=== PATIENT | female | born 1980 | race Caucasian/White ===

== ENCOUNTER → 2017-06-14 09:44 | Outpatient (CLI) | payer OTHER, SELFPAY ==
[2017-06-19 11:11] LABS: HPV Reflexed? NOT INDICATED
== END ==
PROVIDERS: Family Provider Family Medicine; PCP Family Medicine; Visit Provider Obstetrics & Gynecology
DX: Z12.4 Encounter for screening for malignant neoplasm of cervix (principal)
CPT/HCPCS: 88175; G0145

== ENCOUNTER → 2018-09-19 09:06 | Outpatient (CLI) | payer OTHER, SELFPAY ==
[2018-09-19 13:15] LABS: Chlamydia Trachomatis by PCR Negative (Negative); Neisserai gonorrhoeae by PCR Negative (Negative); Probe Check PASS; Sample Adequacy Control PASS; Specimen Processing Control PASS
== END ==
PROVIDERS: Family Provider Family Medicine; PCP Family Medicine; Visit Provider Obstetrics & Gynecology
DX: Z11.3 Encounter for screening for infections with a predominantly sexual mode of transmission (principal)
CPT/HCPCS: 87491; 87591

== ENCOUNTER → 2019-10-15 10:15 | Outpatient (CLI) | payer OTHER, SELFPAY ==
[2019-10-21 17:35] LABS: HPV Reflexed? NOT INDICATED
== END ==
PROVIDERS: PCP Family Medicine; Visit Provider Obstetrics & Gynecology
DX: Z12.4 Encounter for screening for malignant neoplasm of cervix (principal)
CPT/HCPCS: 88175; G0145

== ENCOUNTER → 2021-12-01 | Outpatient (CLI) | payer OTHER, SELFPAY ==
[2021-12-01 17:38] LABS: Absolute Lymphocyte Count 2.18 X10^3/uL (0.83-4.51); Absolute Neutrophil Count 6.2 X10^3/uL (2.0-7.7); Basophil# 0.04 X10^3/uL; Basophil% 0.4 % (0-1); Eosinophil# 0.31 X10^3/uL; Eosinophils% 3.3 % (0-5); Hematocrit 36.5 % (37-47); Hemoglobin 12.5 g/dL (12.0-15.0); Lymphocyte # 2.18 X10^3/ul (0.83-4.51); Lymphocyte % 23.1 % (19-41); Mean Corp Hgb Conc 34.2 g/dL (32-36); Mean Corpuscular Hgb 31.4 pg (27.0-32.0); Mean Corpuscular Volume 91.7 fL (81-99); Mean Platelet Vol. 9.1 fl (6.2-12.0); Monocyte# 0.64 X10^3/uL; Monocyte% 6.8 % (0-10); NRBC Flagged by Analyzer 0 % (0-5); Neutrophil # 6.19 X10^3/uL (2.7-7.7); Neutrophil % 65.7 % (47-70); Platelet Count 317 K/mm3 (150-450); RBC Distribution Width CV 11.9 % (11.6-14.6); RBC Distribution Width SD 40.4 fl (35.1-43.9); Red Blood Count 3.98 M/mm3 (4.2-5.4); White Blood Count 9.4 K/mm3 (4.4-11.0)
[2021-12-01 17:59] LABS: Hemoglobin A1c 7.5 % (3.8-5.6)
[2021-12-01 18:52] LABS: HIV - WCH Non-Reactive (Nonreactive); Hepatitis B Surface Antigen Non-Reactive (Nonreactive); Rubella IgG Reactive (Nonreactive); Syphilis Antibodies Non-reactive
[2021-12-01 18:53] LABS: Hepatitis C Antibody Non-Reactive (Nonreactive)
[2021-12-03 10:57] LABS: V-Zoster IgG (Immunity) 1405 index (Immune >165)
[2021-12-03 22:06] LABS: Chlamydia By Nucleic Acid AMP Negative (Negative)
[2021-12-04 07:17] LABS: Gonococcus By Nucleic Acid AMP Negative (Negative)
[2021-12-07 15:56] LABS: HPV APTIMA, High Risk Negative (Negative)
== END | disposition home or self-care (01) ==
LOC: WOBLAB 17:06
PROVIDERS: PCP Family Medicine; Visit Provider Obstetrics & Gynecology
DX: Z34.81 Encounter for supervision of other normal pregnancy, first trimester (principal)
CPT/HCPCS: 36415; 83036; 85025; 86703; 86762; 86780; 86787; 86803; 87086; 87340; 87491; 87591; 87624; 88175; G0145

== ENCOUNTER → 2021-12-29 | Outpatient (CLI) | payer OTHER, SELFPAY | END | disposition home or self-care (01) | PROVIDERS: PCP Family Medicine; Visit Provider Obstetrics & Gynecology | DX: Z34.81 Encounter for supervision of other normal pregnancy, first trimester (principal) ==

== ENCOUNTER → 2022-06-03 | Outpatient (CLI) | payer OTHER, SELFPAY ==
[2022-06-03 17:14] LABS: Absolute Lymphocyte Count 2.16 X10^3/uL (0.83-4.51); Absolute Neutrophil Count 6.7 X10^3/uL (2.0-7.7); Basophil# 0.04 X10^3/uL; Basophil% 0.4 % (0-1); Eosinophil# 0.15 X10^3/uL; Eosinophils% 1.5 % (0-5); Hematocrit 34.5 % (37-47); Hemoglobin 11.3 g/dL (12.0-15.0); Lymphocyte # 2.16 X10^3/ul (0.83-4.51); Lymphocyte % 21.9 % (19-41); Mean Corp Hgb Conc 32.8 g/dL (32-36); Mean Corpuscular Hgb 29.7 pg (27.0-32.0); Mean Corpuscular Volume 90.8 fL (81-99); Mean Platelet Vol. 10.2 fl (6.2-12.0); Monocyte# 0.78 X10^3/uL; Monocyte% 7.9 % (0-10); NRBC Flagged by Analyzer 0 % (0-5); Neutrophil # 6.66 X10^3/uL (2.7-7.7); Neutrophil % 67.5 % (47-70); Platelet Count 296 K/mm3 (150-450); RBC Distribution Width CV 12.4 % (11.6-14.6); RBC Distribution Width SD 40.8 fl (35.1-43.9); White Blood Count 9.9 K/mm3 (4.4-11.0)
[2022-06-03 17:24] LABS: Protein, Urine (Random) 25.1 mg/dL (<11.9); Protein:Creat Ratio 124 mg/g CRE (0-200)
[2022-06-03 18:18] LABS: ALB/GLOB Ratio 0.7 RATIO (0.9-2.4); AST(SGOT) 16 U/L (15-37); Alanine Aminotransfer ALT/SGPT 21 U/L (13-56); Albumin, Serum 2.7 g/dL (3.2-5.0); Alkaline Phosphatase 128 U/L (45-117); Anion Gap 8 (5-15); BUN 12 mg/dL (7-18); BUN/Creat Ratio 13.5 RATIO (10-20); Calcium,Total 9.3 mg/dL (8.5-10.1); Chloride 105 mmol/L (98-107); Creatinine, Serum 0.89 mg/dL (0.55-1.02); EST Glomerular Filtration Rate 75 mL/min (>60); Est Glom Filt Rate - Afr Amer 90 mL/min (>60); Glucose 114 mg/dL (74-106); LDH 167 U/L (84-246); Potassium 3.9 mmol/L (3.5-5.1); Protein, Total 6.7 g/dL (6.4-8.2); Sodium Level 139 mmol/L (136-145)
== END | disposition home or self-care (01) ==
LOC: WOBLAB 16:33
PROVIDERS: PCP Family Medicine; Visit Provider Obstetrics & Gynecology
DX: I10 Essential (primary) hypertension (principal)
CPT/HCPCS: 36415; 80053; 82570; 83615; 84156; 85025; 87086; 87088

== ENCOUNTER → 2022-06-10 | Outpatient (CLI) | payer OTHER, SELFPAY ==
[2022-06-10 16:35] LABS: Absolute Lymphocyte Count 2.23 X10^3/uL (0.83-4.51); Absolute Neutrophil Count 6.1 X10^3/uL (2.0-7.7); Basophil# 0.02 X10^3/uL; Basophil% 0.2 % (0-1); Eosinophil# 0.14 X10^3/uL; Eosinophils% 1.5 % (0-5); Hematocrit 34.7 % (37-47); Hemoglobin 11.5 g/dL (12.0-15.0); Lymphocyte # 2.23 X10^3/ul (0.83-4.51); Mean Corp Hgb Conc 33.1 g/dL (32-36); Mean Corpuscular Hgb 29.9 pg (27.0-32.0); Mean Corpuscular Volume 90.1 fL (81-99); Monocyte# 0.75 X10^3/uL; Monocyte% 8.1 % (0-10); NRBC Flagged by Analyzer 0 % (0-5); Neutrophil # 6.08 X10^3/uL (2.7-7.7); Neutrophil % 65.3 % (47-70); Platelet Count 268 K/mm3 (150-450); RBC Distribution Width CV 12.8 % (11.6-14.6); RBC Distribution Width SD 41.7 fl (35.1-43.9); Red Blood Count 3.85 M/mm3 (4.2-5.4); White Blood Count 9.3 K/mm3 (4.4-11.0)
[2022-06-10 17:27] LABS: Syphilis Antibodies Non-reactive
== END | disposition home or self-care (01) ==
LOC: WOBLAB 16:10
PROVIDERS: PCP Family Medicine; Visit Provider Obstetrics & Gynecology
DX: Z34.83 Encounter for supervision of other normal pregnancy, third trimester (principal)
CPT/HCPCS: 36415; 85025; 86780; 87081

== ENCOUNTER 2022-06-14 16:00 | Inpatient (IN) | payer OTHER, SELFPAY ==
[2022-06-14] VITALS (94 sets, daily range): BP systolic 132–193; BP diastolic 76–108; PULSE 68–88; RESP 15–18; TEMP 36.5–36.8; O2SAT 89–100; BMI 33.4
[2022-06-14 15:45] LABS: Hematocrit 33.3 % (37-47); Hemoglobin 11.3 g/dL (12.0-15.0); Mean Corp Hgb Conc 33.9 g/dL (32-36); Mean Corpuscular Volume 88.3 fL (81-99); Mean Platelet Vol. 10.5 fl (6.2-12.0); Platelet Count 266 K/mm3 (150-450); RBC Distribution Width CV 12.6 % (11.6-14.6); RBC Distribution Width SD 40.3 fl (35.1-43.9); Red Blood Count 3.77 M/mm3 (4.2-5.4)
[2022-06-14 15:47] LABS: Color, Urine Yellow (Yellow); Glucose, Dipstick Normal (Normal); Ketone-Dipstick Negative (Negative); Leukocyte Esterase-Dipstick 100 /ul (Negative); Mucous, Urine 0 SEEN /hpf (<or=2+); Nitrite-Dipstick Negative (Negative); Occult Blood-Urine Negative /ul (Negative); Protein-Dipstick Negative (Negative); Red Blood Cells-Urine 0 SEEN /hpf (0-5); Urine Bilirubin Dipstick Negative (Negative); Urine Clarity Sl. Cloudy (Clear); Urine Urobilinogen Normal (Normal)
[2022-06-14 15:47] LABS: Protein, Urine (Random) 7.7 mg/dL (<11.9); Protein:Creat Ratio 399 mg/g CRE (0-200)
[2022-06-14 15:56] LABS: AST(SGOT) 16 U/L (15-37); Alanine Aminotransfer ALT/SGPT 22 U/L (13-56); Creatinine, Serum 0.79 mg/dL (0.55-1.02); EST Glomerular Filtration Rate 86 mL/min (>60); Est Glom Filt Rate - Afr Amer 104 mL/min (>60); Uric Acid 5.8 mg/dL (2.6-6.0)
[2022-06-14 16:20] LABS: Bacteria 2+ /hpf (None Seen); Squamous Epithelial Cells - UA 10-25 SEEN /hpf (5-10); White Blood Cells 5-10 SEEN /hpf (0-5)
[2022-06-14] MEDS: Labetalol (Prefilled) 20 MG/4 ML IV ×2 (16:20→18:54)
[2022-06-14] MEDS: Magnesium Sulfate 4gm/100mL 4 GM/100 ML IV.SOLN. IV (16:29)
[2022-06-14] MEDS: Lactated Ringers 1,000 ML 50 ML IV (16:31)
[2022-06-14] MEDS: Magnesium Sulfate 4gm/100mL 2 GM/50 ML IV.SOLN. IV (16:51)
[2022-06-14] MEDS: Magnesium Sulfate 20 GM/500 ML BAG IV (17:03)
[2022-06-14 17:15] LABS: Bedside Glucose 72 mg/dL (74-106)
--- NOTE | 2022-06-14 17:33 | HP.PCM.OB_ITS ---
History and Physical Date of Admission: 06/14/22 HPI: 41-year-old G3, P2 at 36/3 weeks, RITO 07/09/2022 by LMP consistent with 8-week ultrasound, admitted for induction of labor for superimposed preeclampsia with severe features based on severe range blood pressures and proteinuria. Patient reported elevated blood pressure at home last night and this morning. She was evaluated in office, blood pressure was within normal limits however she reported headache was resolving. Therefore she was sent to labor and delivery for blood pressure monitoring and lab work. Blood pressures were severe range, labetalol 20 mg IV was given. Magnesium was started. Denies vision changes, chest pain or shortness of breath, nausea or vomiting, diarrhea constipation, fevers or chills, right upper quadrant pain. Denies regular contractions. Denies leaking of fluid. Reports movement. complicated by: Superimposed preeclampsia with severe features, patient previously on labetalol 300 mg twice daily. Type 2 diabetes on Levemir 25 units every morning and 65 units in the evening, Humalog 20/20/25 with meals. Advanced maternal age ROOF TRUSS DETAILER history: G1: Full-term 40 week , gestational diabetes G2: 39-week , gestational diabetes G3: Current Medical history: 1. Chronic hypertension 2. Type 2 diabetes Surgical history: 1. Appendectomy Medications: 1.Levemir 25 units every morning and 65 units in the evening, Humalog 20/20/25 with meals 2. Labetalol 300 mg twice daily Allergies: 1. Vicodin Family history: Denies history of blood clots or bleeding disorders, otherwise noncontributory Social history: Denies tobacco, alcohol, drug use Review of system: Negative otherwise stated above Physical exam: Blood pressure 140/80, heart rate 69,Respiratory rate 16, pulse ox 100% on room air General:: No acute distress, comfortable in bed HEENT: Normocephalic/atraumatic, PERRLA Cardiorespiratory: No increased effort Abdomen: Soft, nontender, gravid, no right upper quadrant pain Cervical exam: Per RN 1 cm, 70% effaced Neurologic: Cranial nerves II through XII grossly intact, no focal deficits, patellar reflexes 2/4 bilaterally Musculoskeletal: Strength out of 5 throughout extremities heart rate:115/mod vandana/+accel/no decel [place]: irregular Assessment/plan: 41-year-old G3, P2 at 36/3 weeks, RITO 07/09/2022 by LMP consistent with 8-week ultrasound, admitted for induction of labor for superimposed preeclampsia with severe features based on severe range blood pressures and proteinuria. complicated by: Superimposed preeclampsia with severe features, patient previously on labetalol 300 mg twice daily. Type 2 diabetes on Levemir 25 units every morning and 65 units in the evening, Humalog with meals. Advanced maternal age ?Admit for induction of labor with Cytotec. ? Labs were within normal limits aside from proteinuria ? Start magnesium sulfate. 6 g bolus, 2 g/h. ? GBS negative ? DM2: Diabetes protocol. ? Status post labetalol 20 mg IV x1, continue labetalol 300 mg twice daily. ?Discussed diagnosis and plan of care at length with patient and her partner, bedside RN in room. Discussed delivery, possible special care stay. Discussed not using Celestone at this time as patient is greater than 36 weeks and has poorly controlled diabetes. Continue magnesium for 24 hours postop. Discharge home day 3 if stable. All questions were answered.
[2022-06-14 18:09] LABS: Syphilis Antibodies Non-reactive
[2022-06-14 18:11] LABS: Bedside Glucose 92 mg/dL (74-106)
[2022-06-14] MEDS: miSOPROStol 25 MCG TABLET VAGINAL ×2 (19:02→23:06)
[2022-06-14] MEDS: Mag Hydrox/Al Hydrox/Simeth 30 ML UDC PO (21:01)
[2022-06-14] MEDS: Acetaminophen 500 MG Tablet PO (21:01)
[2022-06-14] MEDS: Labetalol 200 MG Tablet 300 MG PO (21:53)
[2022-06-14 22:25] LABS: Bedside Glucose 109 mg/dL (74-106)
[2022-06-15] VITALS (226 sets, daily range): BP systolic 109–176; BP diastolic 63–100; PULSE 59–96; RESP 15–18; TEMP 36.1–37.4; O2SAT 69–99
[2022-06-15 02:41] LABS: Bedside Glucose 103 mg/dL (74-106)
[2022-06-15] MEDS: miSOPROStol 25 MCG TABLET VAGINAL ×2 (03:06→07:44)
[2022-06-15] MEDS: Magnesium Sulfate 20 GM/500 ML BAG IV ×2 (03:09→14:16)
[2022-06-15 06:36] LABS: Bedside Glucose 129 mg/dL (74-106)
[2022-06-15 06:47] LABS: Magnesium 5.8 mg/dL (1.6-2.6)
[2022-06-15 07:35] LABS: Bedside Glucose 122 mg/dL (74-106)
--- NOTE | 2022-06-15 07:46 | PCM.PN.OB ---
Subjective Subjective Patient in good spirits. Reports irregular contractions, some a little more uncomfortable. Objective Data Objective Data Vital Signs: Vital Signs Temp Pulse Resp BP Pulse Ox O2 Del Method 98.0 F 87 16 146/91 H 98 Room Air 06/15/22 07:00 06/15/22 07:41 06/15/22 07:00 06/15/22 07:06 06/15/22 07:41 06/15/22 07:00 Oxygen Delivery Method Room Air Weight: 91.172 kg Body Mass Index (BMI) 33.4 Intake & Output: Intake and Output for Last 24 Hours 06/13/22 06/14/22 06/15/22 23:59 23:59 23:59 Intake Total 601.5 / 626.5 552.5 / 552.5 Output Total 1600 / 1600 750 / 750 Balance -998.5 / -973.5 -197.5 / -197.5 Lab / Micro Data Attestation: I reviewed the patient's lab results. Result Diagrams: 06/14/22 15:15 06/14/22 14:54 Labs: Laboratory Results - last 24 hr 06/14/22 14:54: U Random Total Protein 7.7, Urine Creatinine 19.30, Protein/Creatinin Ratio 399 H 06/14/22 14:54: Creatinine 0.79, Est GFR (MDRD) Af Amer 104, Est GFR (MDRD) Non-Af 86, Uric Acid 5.8, AST 16, ALT 22 06/14/22 15:15: WBC 9.0, RBC 3.77 L, Hgb 11.3 L, Hct 33.3 L, MCV 88.3, MCH 30.0, MCHC 33.9, RDW Std Deviation 40.3, RDW Coeff of Soraya 12.6, Plt Count 266, MPV 10.5 06/14/22 15:15: Urine Color Yellow, Urine Clarity Sl. Cloudy, Urine pH 7.0, Ur Specific [place] 1.010, Urine Protein Negative, Urine Glucose (UA) Normal, Urine Ketones Negative, Urine Occult Blood Negative, Urine Nitrite Negative, Urine Bilirubin Negative, Urine Urobilinogen Normal, Ur Leukocyte Esterase 100 H, Urine RBC 0 SEEN, Urine WBC 5-10 SEEN, Ur Squamous Epith Cells 10-25 SEEN, Urine Bacteria 2+, Urine Mucus 0 SEEN 06/14/22 15:15: Blood Type O POSITIVE, Antibody Screen NEGATIVE 06/14/22 15:15: Syphilis Total Ab Non-reactive 06/14/22 16:55: POC Glucose 72 L 06/14/22 17:47: POC Glucose 92 06/14/22 21:58: POC Glucose 109 H 06/14/22 23:10: Magnesium 5.0 H 06/15/22 02:09: POC Glucose 103 06/15/22 06:08: POC Glucose 129 H 06/15/22 06:10: Magnesium 5.8 H* 06/15/22 07:14: POC Glucose 122 H Physical Exam Const alert, oriented x3 and no apparent distress Resp normal respiratory effort GI soft to palpation and non-tender Inspection: gravid Extremity normal to inspection and no pedal edema NST FHR Rate Baby A Baseline: 120 Variability:: Moderate Accelerations:: 15 x 15 Decelerations:: None FHR Category:: Category I Uterine Activity:: irregular Assessment & Plan (1) Pre-eclampsia superimposed on chronic hypertension: PLAN: 41-year-old at 36/4 weeks admitted for induction of labor for superimposed preeclampsia with severe features. ?Patient continues on magnesium sulfate. ?She has received 20 mg IV labetalol yesterday afternoon, additional 20 mg IV labetalol around 1900 on 06/14. She is receiving 300 mg labetalol every 12 hours p.o. ?Mag levels within normal limits., Repeat in 6 hours. ?Cervix 1 cm in posterior, patient just received fourth dose of Cytotec. Will likely change to Pitocin at next check. ?Patient now starting on insulin drip. Home insulin had been held on admission. (2) Diabetes mellitus:
[2022-06-15] MEDS: 0.9% Saline Lock 10 ML Syringe IV ×2 (07:59→16:55)
[2022-06-15] MEDS: Lactated Ringers 1,000 ML 15 ML IV (08:15)
[2022-06-15 08:55] LABS: Bedside Glucose 124 mg/dL (74-106)
[2022-06-15] MEDS: Acetaminophen 500 MG Tablet PO (09:11)
[2022-06-15] MEDS: Labetalol 200 MG Tablet 300 MG PO ×2 (09:27→21:58)
[2022-06-15 09:40] LABS: Bedside Glucose 122 mg/dL (74-106)
[2022-06-15 10:41] LABS: Bedside Glucose 162 mg/dL (74-106)
[2022-06-15] MEDS: Lactated Ringers 1,000 ML 50 ML IV (11:39)
[2022-06-15 11:50] LABS: Bedside Glucose 159 mg/dL (74-106)
[2022-06-15] MEDS: Oxytocin 15 Units/NS 250ml 15 UNITS/250 ML IV.SOLN 2 UNITS IV (12:45)
[2022-06-15 13:32] LABS: Magnesium 5.7 mg/dL (1.6-2.6)
[2022-06-15 14:40] LABS: Bedside Glucose 135 mg/dL (74-106)
[2022-06-15 14:40] LABS: Bedside Glucose 125 mg/dL (74-106)
[2022-06-15 14:40] LABS: Bedside Glucose 114 mg/dL (74-106)
[2022-06-15] MEDS: LACTATED RINGERS 500 ML 999 ML IV (15:07)
[2022-06-15 15:46] LABS: Bedside Glucose 100 mg/dL (74-106)
[2022-06-15] MEDS: Carboprost Tromethamine 250 MCG/ML Ampul IM (16:05)
[2022-06-15] MEDS: Lidocaine 1% (20 ml mdv) 20 ML Vial INFILT (16:12)
[2022-06-15] MEDS: Oxytocin 15 Units/NS 250ml 15 UNITS/250 ML IV.SOLN 83 UNITS IV (16:30)
[2022-06-15] MEDS: Ibuprofen 600 MG Tablet PO (16:54)
[2022-06-15 17:40] LABS: Bedside Glucose 134 mg/dL (74-106)
[2022-06-15] MEDS: NIFEdipine 60 MG Tablet PO (17:50)
[2022-06-15] MEDS: Insulin Lispro 100 UNIT/ML INSULN.PEN 10 UNIT SC (18:53)
--- NOTE | 2022-06-15 19:11 | EX.PCM.OBRPT ---
Vaginal Delivery Findings Description of Procedure: Called by nursing in office with patient ready for delivery. Arrived to room with baby in warmer and patient resting comfortably in bed. Precipitous delivery of male . Placenta delivered via cord traction and fundal massage, intact. IV oxytocin initiated per protocol, prophylactic Hemabate given with precipitous second stage of labor and preeclampsia with severe features on magnesium during labor. Second-degree midline perineal laceration noted. 1% lidocaine 10 cc injected. Second-degree midline perineal laceration noted and repaired in typical fashion. EBL 250 cc Apgars 8/9
[2022-06-15 19:25] LABS: Bedside Glucose 149 mg/dL (74-106)
[2022-06-15] MEDS: Insulin Glargine-YFGN 100 UNIT/ML Pen 30 UNIT SC (21:59)
[2022-06-15 22:25] LABS: Bedside Glucose 232 mg/dL (74-106)
[2022-06-16] VITALS (37 sets, daily range): BP systolic 100–141; BP diastolic 60–88; PULSE 65–94; RESP 15–18; TEMP 36.4–37.1; O2SAT 81–98
[2022-06-16] MEDS: Magnesium Sulfate 20 GM/500 ML BAG IV ×2 (00:06→10:02)
--- NOTE | 2022-06-16 04:45 | PCM.PN.OB ---
Subjective Subjective No overnight complaints. Denies headache, vision changes, chest pain, shortness of breath, nausea vomit, right upper quadrant pain. Objective Data Objective Data Vital Signs: Vital Signs Temp Pulse Resp BP Pulse Ox O2 Del Method 98.5 F 90 15 113/65 97 Room Air 06/16/22 04:00 06/16/22 04:00 06/16/22 04:00 06/16/22 04:00 06/16/22 04:00 06/16/22 04:00 Oxygen Delivery Method Room Air Weight: 201 lb Body Mass Index (BMI) 33.4 Intake & Output: Intake and Output for Last 24 Hours 06/14/22 06/15/22 06/16/22 23:59 23:59 23:59 Intake Total 601.5 / 626.5 3414.45 / 3464.45 791.67 / 791.67 Output Total 1600 / 1600 3400 / 3400 600 / 600 Balance -998.5 / -973.5 14.45 / 64.45 191.67 / 191.67 Lab / Micro Data Result Diagrams: 06/14/22 15:15 06/14/22 14:54 Labs: Laboratory Results - last 24 hr 06/15/22 06:08: POC Glucose 129 H 06/15/22 06:10: Magnesium 5.8 H* 06/15/22 07:14: POC Glucose 122 H 06/15/22 08:09: POC Glucose 124 H 06/15/22 09:18: POC Glucose 122 H 06/15/22 10:18: POC Glucose 162 H 06/15/22 11:27: POC Glucose 159 H 06/15/22 12:22: POC Glucose 135 H 06/15/22 12:35: Magnesium 5.7 H* 06/15/22 13:16: POC Glucose 125 H 06/15/22 14:12: POC Glucose 114 H 06/15/22 15:22: POC Glucose 100 06/15/22 17:19: POC Glucose 134 H 06/15/22 18:57: POC Glucose 149 H 06/15/22 22:01: POC Glucose 232 H Physical Exam Const alert, oriented x3, no apparent distress, average body habitus, healthy appearing and well nourished HEENT normocephalic and moist oral mucous membranes Eyes PERRL Neck full ROM Resp normal respiratory effort, no retractions and no use of accessory muscles GI GI Narrative: Soft, nontender, uterus firm and below umbilicus Extremity normal to inspection, full ROM and no clubbing, cyanosis or edema Neuro moves all extremities, no focal motor deficits and deep tendon reflexes 2+ bilaterally Motor Exam: clonus absent Psych mental status grossly normal, affect normal, speech normal and activity/motor behavior normal Assessment & Plan (1) Vaginal delivery: PLAN: day 1 status post vaginal delivery at 36 weeks. Preeclampsia with severe features based on severe range blood pressures, currently on labetalol 3 mg twice daily and Procardia 60 mg daily. We will continue to monitor blood pressures. Currently on magnesium for 24 hours after delivery to stop later today. Patient remains asymptomatic. Diabetes mellitus, intrapartum insulin have we will continue to balance and monitor and adjust appropriately. Discussed patient's need for diabetic diet as she ate [employer] last night for dinner. We will continue to monitor discussed with patient likely earliest home-going would be Monday
[2022-06-16 05:30] LABS: Absolute Lymphocyte Count 1.87 X10^3/uL (0.83-4.51); Basophil# 0.02 X10^3/uL; Basophil% 0.2 % (0-1); Eosinophil# 0.04 X10^3/uL; Eosinophils% 0.3 % (0-5); Hematocrit 31.5 % (37-47); Hemoglobin 10.4 g/dL (12.0-15.0); Lymphocyte # 1.87 X10^3/ul (0.83-4.51); Lymphocyte % 14.7 % (19-41); Mean Corpuscular Hgb 29.7 pg (27.0-32.0); Mean Platelet Vol. 10.4 fl (6.2-12.0); Monocyte# 0.72 X10^3/uL; Monocyte% 5.7 % (0-10); NRBC Flagged by Analyzer 0 % (0-5); Neutrophil # 9.99 X10^3/uL (2.7-7.7); Neutrophil % 78.6 % (47-70); POSITIVE COUNT YES; Platelet Count 262 K/mm3 (150-450); RBC Distribution Width CV 12.8 % (11.6-14.6); RBC Distribution Width SD 41.6 fl (35.1-43.9); White Blood Count 12.7 K/mm3 (4.4-11.0)
[2022-06-16 05:33] LABS: Differential Indicated SCAN CRITERIA MET
[2022-06-16 05:57] LABS: ALB/GLOB Ratio 0.7 RATIO (0.9-2.4); AST(SGOT) 27 U/L (15-37); Alanine Aminotransfer ALT/SGPT 19 U/L (13-56); Albumin, Serum 2.5 g/dL (3.2-5.0); Alkaline Phosphatase 118 U/L (45-117); Anion Gap 8 (5-15); BUN 12 mg/dL (7-18); BUN/Creat Ratio 15.3 RATIO (10-20); Calcium,Total 7.1 mg/dL (8.5-10.1); Chloride 104 mmol/L (98-107); Creatinine, Serum 0.79 mg/dL (0.55-1.02); EST Glomerular Filtration Rate 86 mL/min (>60); Est Glom Filt Rate - Afr Amer 104 mL/min (>60); Estimated Creatinine Clearance 85.18 ml/min; Globulin 3.7 g/dL (2.2-4.2); Glucose 121 mg/dL (74-106); LDH 277 U/L (84-246); Magnesium 6.7 mg/dL (1.6-2.6); Potassium 3.9 mmol/L (3.5-5.1); Protein, Total 6.2 g/dL (6.4-8.2); Sodium Level 135 mmol/L (136-145)
[2022-06-16] MEDS: Ibuprofen 600 MG Tablet PO (06:18)
[2022-06-16 06:31] LABS: Differential Comment SCANNED; Platelet Estimate ADEQUATE (ADEQ)
[2022-06-16] MEDS: Insulin Glargine-YFGN 100 UNIT/ML Pen 12 UNIT SC (08:32)
[2022-06-16] MEDS: Insulin Lispro 100 UNIT/ML INSULN.PEN 10 UNIT SC ×3 (08:34→17:31)
--- NOTE | 2022-06-16 08:42 | NURSING ---
assessment completed with student
[2022-06-16 08:55] LABS: Bedside Glucose 117 mg/dL (74-106)
--- NOTE | 2022-06-16 09:58 | NURSING ---
Student charting reviewed and agree by HOLDEN Miller instructor
[2022-06-16] MEDS: Labetalol 200 MG Tablet 300 MG PO ×2 (10:00→22:05)
[2022-06-16 12:41] LABS: Bedside Glucose 118 mg/dL (74-106)
[2022-06-16 13:25] LABS: Magnesium 6.2 mg/dL (1.6-2.6)
[2022-06-16 17:55] LABS: Bedside Glucose 138 mg/dL (74-106)
[2022-06-16] MEDS: Insulin Glargine-YFGN 100 UNIT/ML Pen 30 UNIT SC (22:11)
[2022-06-16 22:40] LABS: Bedside Glucose 91 mg/dL (74-106)
[2022-06-17] VITALS (10 sets, daily range): BP systolic 98–140; BP diastolic 53–94; PULSE 69–85; RESP 15–18; TEMP 36.7–37.3; O2SAT 96–97
--- NOTE | 2022-06-17 08:20 | PCM.PN.OB ---
Subjective Subjective No overnight complaints. Denies headache, vision change, chest pain, shortness of breath, nausea vomit, quadrant pain Objective Data Objective Data Vital Signs: Vital Signs Temp Pulse Resp BP Pulse Ox O2 Del Method 98.1 F 69 15 133/82 H 96 Room Air 06/17/22 02:46 06/17/22 08:13 06/17/22 02:46 06/17/22 08:13 06/17/22 02:46 06/17/22 02:46 Oxygen Delivery Method Room Air Weight: 201 lb Body Mass Index (BMI) 33.4 Intake & Output: Intake and Output for Last 24 Hours 06/15/22 06/16/22 06/17/22 23:59 23:59 23:59 Intake Total 3414.45 / 3464.45 1865.84 / 1865.84 Output Total 3400 / 3400 1600 / 1600 Balance 14.45 / 64.45 265.84 / 265.84 Lab / Micro Data Result Diagrams: 06/16/22 05:10 06/16/22 05:10 Labs: Laboratory Results - last 24 hr 06/16/22 08:29: POC Glucose 117 H 06/16/22 12:03: POC Glucose 118 H 06/16/22 12:45: Magnesium 6.2 H* 06/16/22 17:28: POC Glucose 138 H 06/16/22 22:14: POC Glucose 91 Physical Exam Const alert, oriented x3, no apparent distress, average body habitus, healthy appearing and well nourished HEENT normocephalic and moist oral mucous membranes Eyes PERRL Neck full ROM Resp normal respiratory effort, no retractions and no use of accessory muscles GI GI Narrative: Soft, nontender, uterus firm and below umbilicus Extremity normal to inspection and full ROM Neuro moves all extremities and no focal motor deficits Psych mental status grossly normal, affect normal, speech normal and activity/motor behavior normal Assessment & Plan (1) Vaginal delivery: PLAN: day 2. Breast-feeding. Sleep with severe features based on severe range blood pressures. Currently on labetalol 300 mg twice daily. Was ordered for Procardia 60 mg XL daily but only received 1 dose and order was inappropriately canceled. At this time nursing to call with 10:00 blood pressure check and pending results will discuss oral blood pressure medications for today and going forward. Patient remains asymptomatic. Will repeat HELLP labs today. Status post magnesium. Pregestational diabetic on half of home insulin, will continue and continue to monitor blood sugars. Discussed with patient we will continue to evaluate until day 3 to 4
[2022-06-17] MEDS: Insulin Glargine-YFGN 100 UNIT/ML Pen 12 UNIT SC (09:20)
[2022-06-17] MEDS: Insulin Lispro 100 UNIT/ML INSULN.PEN 10 UNIT SC ×3 (09:21→21:58)
[2022-06-17 09:30] LABS: Bedside Glucose 88 mg/dL (74-106)
--- NOTE | 2022-06-17 10:16 | NURSING ---
0904: Left a message for Dr.J Gonzalez letting him know that the pt's AM blood sugar is 88 and if I need to hold AM insulin orders.
--- NOTE | 2022-06-17 10:17 | NURSING ---
0916: Orders received from Dr.J Gonzalez to give AM insulin and check 2 hour post perenial blood sugar. Will call back with those results.
--- NOTE | 2022-06-17 10:19 | NURSING ---
1011: Left a message with Dr.J Gonzalez letting him know 1000 blood pressure for pt was 127/74. Orders received to give Am dose of Trandate 300mg.
[2022-06-17] MEDS: Labetalol 200 MG Tablet 300 MG PO ×2 (10:24→22:06)
[2022-06-17 12:01] LABS: Bedside Glucose 108 mg/dL (74-106)
[2022-06-17 13:35] LABS: Bedside Glucose 90 mg/dL (74-106)
[2022-06-17 15:07] LABS: Absolute Lymphocyte Count 1.91 X10^3/uL (0.83-4.51); Absolute Neutrophil Count 5.7 X10^3/uL (2.0-7.7); Basophil# 0.04 X10^3/uL; Basophil% 0.5 % (0-1); Eosinophil# 0.12 X10^3/uL; Eosinophils% 1.4 % (0-5); Hematocrit 30.8 % (37-47); Lymphocyte # 1.91 X10^3/ul (0.83-4.51); Lymphocyte % 22.6 % (19-41); Mean Corp Hgb Conc 32.5 g/dL (32-36); Mean Corpuscular Hgb 29.4 pg (27.0-32.0); Mean Corpuscular Volume 90.6 fL (81-99); Monocyte# 0.69 X10^3/uL; Monocyte% 8.1 % (0-10); NRBC Flagged by Analyzer 0 % (0-5); Neutrophil # 5.65 X10^3/uL (2.7-7.7); Neutrophil % 66.7 % (47-70); Platelet Count 260 K/mm3 (150-450); RBC Distribution Width CV 13.2 % (11.6-14.6); White Blood Count 8.5 K/mm3 (4.4-11.0)
[2022-06-17 15:25] LABS: ALB/GLOB Ratio 0.7 RATIO (0.9-2.4); AST(SGOT) 21 U/L (15-37); Alanine Aminotransfer ALT/SGPT 20 U/L (13-56); Albumin, Serum 2.5 g/dL (3.2-5.0); Alkaline Phosphatase 106 U/L (45-117); Anion Gap 8 (5-15); BUN 15 mg/dL (7-18); BUN/Creat Ratio 15.5 RATIO (10-20); Calcium,Total 9.4 mg/dL (8.5-10.1); Chloride 106 mmol/L (98-107); Creatinine, Serum 0.97 mg/dL (0.55-1.02); EST Glomerular Filtration Rate 68 mL/min (>60); Est Glom Filt Rate - Afr Amer 82 mL/min (>60); Estimated Creatinine Clearance 69.37 ml/min; Globulin 3.8 g/dL (2.2-4.2); Glucose 106 mg/dL (74-106); LDH 257 U/L (84-246); Potassium 4.1 mmol/L (3.5-5.1); Protein, Total 6.3 g/dL (6.4-8.2); Sodium Level 138 mmol/L (136-145)
[2022-06-17 19:20] LABS: Bedside Glucose 69 mg/dL (74-106)
[2022-06-17 22:26] LABS: Bedside Glucose 148 mg/dL (74-106)
[2022-06-18] VITALS (94 sets, daily range): BP systolic 85–177; BP diastolic 51–104; PULSE 69–106; RESP 16–18; TEMP 36–37.6; O2SAT 90–99
[2022-06-18 06:04] LABS: Absolute Lymphocyte Count 2.03 X10^3/uL (0.83-4.51); Absolute Neutrophil Count 5.9 X10^3/uL (2.0-7.7); Basophil# 0.04 X10^3/uL; Basophil% 0.5 % (0-1); Eosinophil# 0.24 X10^3/uL; Eosinophils% 2.7 % (0-5); Hematocrit 32.1 % (37-47); Hemoglobin 10.4 g/dL (12.0-15.0); Lymphocyte # 2.03 X10^3/ul (0.83-4.51); Mean Corp Hgb Conc 32.4 g/dL (32-36); Mean Corpuscular Hgb 29.7 pg (27.0-32.0); Mean Corpuscular Volume 91.7 fL (81-99); Mean Platelet Vol. 9.7 fl (6.2-12.0); Monocyte# 0.54 X10^3/uL; Monocyte% 6.1 % (0-10); NRBC Flagged by Analyzer 0 % (0-5); Neutrophil # 5.88 X10^3/uL (2.7-7.7); Neutrophil % 66.8 % (47-70); Platelet Count 279 K/mm3 (150-450); RBC Distribution Width CV 12.9 % (11.6-14.6); RBC Distribution Width SD 42.6 fl (35.1-43.9); White Blood Count 8.8 K/mm3 (4.4-11.0)
[2022-06-18 06:26] LABS: ALB/GLOB Ratio 0.7 RATIO (0.9-2.4); AST(SGOT) 21 U/L (15-37); Alanine Aminotransfer ALT/SGPT 22 U/L (13-56); Albumin, Serum 2.6 g/dL (3.2-5.0); Alkaline Phosphatase 98 U/L (45-117); Anion Gap 5 (5-15); BUN 15 mg/dL (7-18); BUN/Creat Ratio 18.6 RATIO (10-20); Chloride 107 mmol/L (98-107); EST Glomerular Filtration Rate 84 mL/min (>60); Est Glom Filt Rate - Afr Amer 101 mL/min (>60); Estimated Creatinine Clearance 84.11 ml/min; Globulin 3.8 g/dL (2.2-4.2); Glucose 106 mg/dL (74-106); LDH 233 U/L (84-246); Protein, Total 6.4 g/dL (6.4-8.2); Sodium Level 136 mmol/L (136-145)
[2022-06-18] MEDS: Labetalol 200 MG Tablet 300 MG PO ×2 (08:30→21:36)
[2022-06-18] MEDS: Insulin Glargine-YFGN 100 UNIT/ML Pen 12 UNIT SC (09:38)
[2022-06-18 09:45] LABS: Bedside Glucose 97 mg/dL (74-106)
[2022-06-18] MEDS: NIFEdipine 30 MG Tablet PO ×2 (09:50→13:04)
--- NOTE | 2022-06-18 10:17 | PCM.PN.OB ---
Subjective Subjective No overnight complaints. Patient asymptomatic. Denies headache, vision changes, chest pain, shortness of breath, nausea vomit, right upper quadrant pain. Objective Data Objective Data Vital Signs: Vital Signs Temp Pulse Resp BP Pulse Ox O2 Del Method 97.2 F L 81 16 145/79 H 95 Room Air 06/18/22 06:18 06/18/22 10:05 06/18/22 06:18 06/18/22 10:05 06/18/22 06:18 06/18/22 06:18 Oxygen Delivery Method Room Air Weight: 201 lb Body Mass Index (BMI) 33.4 Intake & Output: Intake and Output for Last 24 Hours 06/16/22 06/17/22 06/18/22 23:59 23:59 23:59 Intake Total 1865.84 / 1865.84 Output Total 1600 / 1600 Balance 265.84 / 265.84 Lab / Micro Data Result Diagrams: 06/18/22 05:50 06/18/22 05:50 Labs: Laboratory Results - last 24 hr 06/17/22 11:37: POC Glucose 108 H 06/17/22 13:14: POC Glucose 90 06/17/22 14:55: WBC 8.5, RBC 3.40 L, Hgb 10.0 L, Hct 30.8 L, MCV 90.6, MCH 29.4, MCHC 32.5, RDW Std Deviation 43.0, RDW Coeff of [place]aya 13.2, Plt Count 260, MPV 10.0, Immature Gran % (Auto) 0.700, Neut % (Auto) 66.7, Lymph % (Auto) 22.6, [place] % (Auto) 8.1, Eos % (Auto) 1.4, Baso % (Auto) 0.5, Absolute Neuts (auto) 5.7, Absolute Lymphs (auto) 1.91, Nucleated RBC % 0 06/17/22 14:55: Sodium 138, Potassium 4.1, Chloride 106, Carbon Dioxide 24.0, Anion Gap 8, BUN 15, Creatinine 0.97, Estim Creat Clear Calc 69.37, Est GFR (MDRD) Af Amer 82, Est GFR (MDRD) Non-Af 68, BUN/Creatinine Ratio 15.5, Glucose 106, Calcium 9.4, Total Bilirubin 0.30, AST 21, ALT 20, Alkaline Phosphatase 106, Lactate Dehydrogenase 257 H, Total Protein 6.3 L, Albumin 2.5 L, Globulin 3.8, Albumin/Globulin Ratio 0.7 L 06/17/22 19:01: POC Glucose 69 L 06/17/22 22:03: POC Glucose 148 H 06/18/22 05:50: WBC 8.8, RBC 3.50 L, Hgb 10.4 L, Hct 32.1 L, MCV 91.7, MCH 29.7, MCHC 32.4, RDW Std Deviation 42.6, RDW Coeff of [place] 12.9, Plt Count 279, MPV 9.7, Immature Gran % (Auto) 0.900, Neut % (Auto) 66.8, Lymph % (Auto) 23.0, [place] % (Auto) 6.1, Eos % (Auto) 2.7, Baso % (Auto) 0.5, Absolute Neuts (auto) 5.9, Absolute Lymphs (auto) 2.03, Nucleated RBC % 0 06/18/22 05:50: Sodium 136, Potassium 4.0, Chloride 107, Carbon Dioxide 24.0, Anion Gap 5, BUN 15, Creatinine 0.80, Estim Creat Clear Calc 84.11, Est GFR (MDRD) Af Amer 101, Est GFR (MDRD) Non-Af 84, BUN/Creatinine Ratio 18.6, Glucose 106, Calcium 9.0, Total Bilirubin 0.20, AST 21, ALT 22, Alkaline Phosphatase 98, Lactate Dehydrogenase 233, Total Protein 6.4, Albumin 2.6 L, Globulin 3.8, Albumin/Globulin Ratio 0.7 L 06/18/22 09:20: POC Glucose 97 Physical Exam Const alert, oriented x3, no apparent distress, average body habitus, healthy appearing and well nourished HEENT normocephalic and moist oral mucous membranes Eyes PERRL Neck full ROM Resp normal respiratory effort, no retractions and no use of accessory muscles GI GI Narrative: Soft, nontender, uterus firm and below umbilicus Extremity normal to inspection, full ROM and no clubbing, cyanosis or edema Neuro moves all extremities, no focal motor deficits and deep tendon reflexes 2+ bilaterally Motor Exam: clonus absent Psych mental status grossly normal, affect normal, speech normal and activity/motor behavior normal Assessment & Plan (1) Vaginal delivery: PLAN: Called by nursing this morning with severe range blood pressures x2 given instructions for labetalol 20 mg IV per protocol and to start magnesium 6 g bolus at 2 g an hour, also given instructions for blood pressures every 15 minutes. Called back by nursing just prior to giving labetalol patient with nonsevere range pressures and remains asymptomatic. Cancel previous orders of IV labetalol and canceled orders of magnesium with now nonsevere range blood pressures. Given nursing orders for her already scheduled labetalol 300 mg twice daily now, given orders for blood pressures every 15 minutes for 1 hour. He arrived to the unit and given orders for Procardia 30 mg XL daily now. Patient seen and examined. day 3. Breast-feeding. Pain well controlled. [place] with severe features based on severe range blood pressures status post pain x24 hours. Patient asymptomatic. With above findings. Discussed starting Procardia 30 mg XL along with continuing labetalol 300 mg twice daily with patient. Discussed with patient and partner if severe range blood pressures will treat and need magnesium again. Labs within normal limits this morning. We will start Lovenox 40 mg daily. Pregestational diabetes, called by nursing with borderline blood sugar instructed to hold Humalog and continue glargine. Pending future blood sugars will continue half of time insulin short and long-acting. Discussed with patient we will continue to monitor today's blood pressure and reevaluate tomorrow. All questions answered by patient and partner
[2022-06-18] MEDS: Enoxaparin 40 MG/0.4 ML Syringe SC (11:19)
[2022-06-18] MEDS: Magnesium Sulfate 4gm/100mL 4 GM/100 ML IV.SOLN. IV (14:20)
[2022-06-18 14:21] LABS: Bedside Glucose 64 mg/dL (74-106)
[2022-06-18] MEDS: Magnesium Sulfate 4gm/100mL 2 GM/50 ML IV.SOLN. IV (14:45)
[2022-06-18] MEDS: Magnesium Sulfate 20 GM/500 ML BAG IV (14:57)
--- NOTE | 2022-06-18 18:01 | NURSING ---
[id number] and mag flow sheet for vitals
--- NOTE | 2022-06-18 18:02 | NURSING ---
1800-see mag flow sheet and qs for vitals
[2022-06-18] MEDS: Insulin Lispro 100 UNIT/ML INSULN.PEN 10 UNIT SC (18:25)
[2022-06-18 19:06] LABS: Bedside Glucose 133 mg/dL (74-106)
[2022-06-18] MEDS: Acetaminophen 500 MG Tablet 1000 MG PO (20:24)
[2022-06-18] MEDS: Ibuprofen 600 MG Tablet PO (20:24)
[2022-06-18] MEDS: Insulin Glargine-YFGN 100 UNIT/ML Pen 30 UNIT SC (21:38)
[2022-06-19] VITALS (28 sets, daily range): BP systolic 84–131; BP diastolic 51–91; PULSE 63–87; RESP 14–20; TEMP 36–36.6; O2SAT 95–99
[2022-06-19 00:01] LABS: Bedside Glucose 138 mg/dL (74-106)
[2022-06-19] MEDS: Magnesium Sulfate 20 GM/500 ML BAG IV ×2 (00:35→10:01)
[2022-06-19] MEDS: Ibuprofen 600 MG Tablet PO ×3 (02:15→17:44)
[2022-06-19 04:17] LABS: Absolute Lymphocyte Count 1.51 X10^3/uL (0.83-4.51); Basophil# 0.03 X10^3/uL; Basophil% 0.4 % (0-1); Eosinophils% 4.7 % (0-5); Hematocrit 34.7 % (37-47); Hemoglobin 11.2 g/dL (12.0-15.0); Lymphocyte # 1.51 X10^3/ul (0.83-4.51); Lymphocyte % 17.7 % (19-41); Mean Corp Hgb Conc 32.3 g/dL (32-36); Mean Corpuscular Hgb 29.5 pg (27.0-32.0); Mean Corpuscular Volume 91.3 fL (81-99); Mean Platelet Vol. 9.2 fl (6.2-12.0); Monocyte% 5.9 % (0-10); NRBC Flagged by Analyzer 0 % (0-5); Neutrophil # 6.03 X10^3/uL (2.7-7.7); Neutrophil % 70.6 % (47-70); Platelet Count 295 K/mm3 (150-450); RBC Distribution Width CV 12.9 % (11.6-14.6); RBC Distribution Width SD 42.7 fl (35.1-43.9); White Blood Count 8.5 K/mm3 (4.4-11.0)
[2022-06-19 04:40] LABS: ALB/GLOB Ratio 0.7 RATIO (0.9-2.4); AST(SGOT) 29 U/L (15-37); Alanine Aminotransfer ALT/SGPT 36 U/L (13-56); Albumin, Serum 2.9 g/dL (3.2-5.0); Alkaline Phosphatase 110 U/L (45-117); Anion Gap 6 (5-15); BUN 14 mg/dL (7-18); BUN/Creat Ratio 18.8 RATIO (10-20); Calcium,Total 8.3 mg/dL (8.5-10.1); Chloride 104 mmol/L (98-107); Creatinine, Serum 0.75 mg/dL (0.55-1.02); EST Glomerular Filtration Rate 91 mL/min (>60); Est Glom Filt Rate - Afr Amer 110 mL/min (>60); Estimated Creatinine Clearance 89.72 ml/min; Glucose 70 mg/dL (74-106); LDH 284 U/L (84-246); Potassium 3.6 mmol/L (3.5-5.1); Protein, Total 6.9 g/dL (6.4-8.2); Sodium Level 136 mmol/L (136-145)
[2022-06-19 04:53] LABS: Magnesium 6.4 mg/dL (1.6-2.6)
[2022-06-19] MEDS: Acetaminophen 500 MG Tablet 1000 MG PO (05:10)
[2022-06-19 05:55] LABS: Bedside Glucose 87 mg/dL (74-106)
[2022-06-19] MEDS: Insulin Glargine-YFGN 100 UNIT/ML Pen 12 UNIT SC (09:04)
[2022-06-19 10:15] LABS: Bedside Glucose 85 mg/dL (74-106)
[2022-06-19 10:38] LABS: Magnesium 6.2 mg/dL (1.6-2.6)
[2022-06-19] MEDS: Enoxaparin 40 MG/0.4 ML Syringe SC (10:59)
[2022-06-19] MEDS: Labetalol 200 MG Tablet 300 MG PO (11:00)
--- NOTE | 2022-06-19 12:47 | PN.OBGYN_ITS ---
Subjective Subjective No overnight complaints. Denies headache, vision change, chest pain, shortness of breath, nausea vomit, right upper quadrant pain. Objective Data Objective Data Vital Signs: Vital Signs Temp Pulse Resp BP Pulse Ox O2 Del Method 97.3 F L 72 16 116/79 95 Room Air 06/19/22 08:05 06/19/22 12:06 06/19/22 12:05 06/19/22 12:06 06/19/22 12:05 06/19/22 12:05 Oxygen Delivery Method Room Air Weight: 201 lb Body Mass Index (BMI) 33.4 Intake & Output: Intake and Output for Last 24 Hours 06/17/22 06/18/22 06/19/22 23:59 23:59 23:59 Intake Total 690.83 / 690.83 1964.99 / 1964.99 Output Total 1000 / 1000 2300 / 2300 Balance -309.17 / -309.17 -335.01 / -335.01 Lab / Micro Data Result Diagrams: 06/19/22 04:05 06/19/22 04:05 Labs: Laboratory Results - last 24 hr 06/18/22 13:59: POC Glucose 64 L 06/18/22 18:20: POC Glucose 133 H 06/18/22 21:10: Magnesium 5.0 H 06/18/22 21:22: POC Glucose 138 H 06/19/22 04:05: WBC 8.5, RBC 3.80 L, Hgb 11.2 L, Hct 34.7 L, MCV 91.3, MCH 29.5, MCHC 32.3, RDW Std Deviation 42.7, RDW Coeff of [place] 12.9, Plt Count 295, MPV 9.2, Immature Gran % (Auto) 0.700, Neut % (Auto) 70.6 H, Lymph % (Auto) 17.7 L, [place] % (Auto) 5.9, Eos % (Auto) 4.7, Baso % (Auto) 0.4, Absolute Neuts (auto) 6.0, Absolute Lymphs (auto) 1.51, Nucleated RBC % 0 06/19/22 04:05: Sodium 136, Potassium 3.6, Chloride 104, Carbon Dioxide 26.0, Anion Gap 6, BUN 14, Creatinine 0.75, Estim Creat Clear Calc 89.72, Est GFR (MDRD) Af Amer 110, Est GFR (MDRD) Non-Af 91, BUN/Creatinine Ratio 18.8, Glucose 70 L, Calcium 8.3 L, Total Bilirubin 0.30, AST 29, ALT 36, Alkaline Phosphatase 110, Lactate Dehydrogenase 284 H, Total Protein 6.9, Albumin 2.9 L, Globulin 4.0, Albumin/Globulin Ratio 0.7 L 06/19/22 04:05: Magnesium 6.4 H* 06/19/22 05:37: POC Glucose 87 06/19/22 09:02: POC Glucose 85 06/19/22 10:10: Magnesium 6.2 H* Physical Exam Const alert, oriented x3, no apparent distress, average body habitus, healthy appearing and well nourished HEENT normocephalic and moist oral mucous membranes Eyes PERRL Neck full ROM Resp normal respiratory effort, no retractions and no use of accessory muscles Extremity normal to inspection, full ROM and no clubbing, cyanosis or edema Neuro moves all extremities, no focal motor deficits and deep tendon reflexes 2+ bilaterally Motor Exam: clonus absent Psych mental status grossly normal, affect normal, speech normal and activity/motor be havior normal Assessment & Plan (1) Vaginal delivery: PLAN: day 4. Breast-feeding. Kyung with severe features based on severe range blood pressures status post magnesium x24 hours. Called by nursing on 06/18 with persistent severe range blood pressures given orders for labetalol 20 mg IV and to start magnesium 6 g bolus at 2 g an hour with every 6 hours mag levels. Call back by nursing with nonsevere range blood pressure just prior to giving 20 mg of IV labetalol, told to hold labetalol 20 mg IV but start magnesium as previously ordered. Ordered at that time to give Procardia 30 mg XL daily and to continue labetalol 3 mg twice daily. Called back by nursing with severe range blood pressure but not persistent in order to give an extra 30 mg for a total of 60 mg Procardia daily. Seen and examined today. Patient remains asymptomatic. Currently on labetalol 300 mg twice daily and Procardia 60 mg daily, this morning's dose of 300 mg of labetalol was held today. Educated patient on plan for today including magnesium for 24 hours. Discussed prolonged hospital stay and need to continue to monitor. Discussed will consult hospitalist for evaluation. Patient and partner state understanding. Discussed case with hospitalist, hospitalist considering adjusting labetalol and Procardia dosing. Also discussed pregestational diabetes with hospitalist and will evaluate adjusting both short and long-acting insulin. We will continue evaluate today and reevaluate tomorrow
[2022-06-19] MEDS: NIFEdipine 60 MG Tablet PO (13:23)
[2022-06-19 13:46] LABS: Bedside Glucose 96 mg/dL (74-106)
--- NOTE | 2022-06-19 14:33 | PN.HOSP_ITS ---
Reason for Visit Reason for Visit: Diagnoses Type 2 diabetes mellitus without complications (06/14/22) Pre-existing hypertension with pre-eclampsia, unspecified trimester (06/14/22) Encounter for full-term uncomplicated delivery (06/14/22) Subjective Subjective Patient was seen and examined today at the request of BUSINESS SERVICES MANAGER, she delivered recently and had preeclampsia superimposed on chronic hypertension. Patient is currently getting mag sulfate, she is also on labetalol and Procardia. Patient was taking labetalol 300 mg twice a day as an outpatient. Patient was also on outpatient insulin. Patient does have history of diabetes and hypertension in her family members. Patient's blood pressure has been somewhat on the low side this afternoon, she is due to have 1 more dose of magnesium. Objective Data Objective Data Vital Signs: Vital Signs Temp Pulse Resp BP Pulse Ox O2 Del Method 97.3 F L 73 16 122/80 H 98 Room Air 06/19/22 08:05 06/19/22 14:26 06/19/22 13:10 06/19/22 14:25 06/19/22 14:26 06/19/22 13:10 Oxygen Delivery Method Room Air Weight: 91.172 kg Body Mass Index (BMI) 33.4 Intake & Output: Intake and Output for Last 24 Hours 06/17/22 06/18/22 06/19/22 23:59 23:59 23:59 Intake Total 690.83 / 690.83 2073.32 / 2073.32 Output Total 1000 / 1000 2300 / 2300 Balance -309.17 / -309.17 -226.68 / -226.68 Lab / Micro Data Result Diagrams: 06/19/22 04:05 06/19/22 04:05 Labs: Laboratory Results - last 24 hr 06/18/22 18:20: POC Glucose 133 H 06/18/22 21:10: Magnesium 5.0 H 06/18/22 21:22: POC Glucose 138 H 06/19/22 04:05: WBC 8.5, RBC 3.80 L, Hgb 11.2 L, Hct 34.7 L, MCV 91.3, MCH 29.5, MCHC 32.3, RDW Std Deviation 42.7, RDW Coeff of Soraya 12.9, Plt Count 295, MPV 9.2, Immature Gran % (Auto) 0.700, Neut % (Auto) 70.6 H, Lymph % (Auto) 17.7 L, [place] % (Auto) 5.9, Eos % (Auto) 4.7, Baso % (Auto) 0.4, Absolute Neuts (auto) 6.0, Absolute Lymphs (auto) 1.51, Nucleated RBC % 0 06/19/22 04:05: Sodium 136, Potassium 3.6, Chloride 104, Carbon Dioxide 26.0, Anion Gap 6, BUN 14, Creatinine 0.75, Estim Creat Clear Calc 89.72, Est GFR (MDRD) Af Amer 110, Est GFR (MDRD) Non-Af 91, BUN/Creatinine Ratio 18.8, Glucose 70 L, Calcium 8.3 L, Total Bilirubin 0.30, AST 29, ALT 36, Alkaline Phosphatase 110, Lactate Dehydrogenase 284 H, Total Protein 6.9, Albumin 2.9 L, Globulin 4.0, Albumin/Globulin Ratio 0.7 L 06/19/22 04:05: Magnesium 6.4 H* 06/19/22 05:37: POC Glucose 87 06/19/22 09:02: POC Glucose 85 06/19/22 10:10: Magnesium 6.2 H* 06/19/22 13:23: POC Glucose 96 Physical Exam Const alert, oriented x3, no apparent distress and healthy appearing General Appearance: cooperative, well kempt and well developed Orientation / Consciousness: awake, oriented to person, oriented to place and oriented to time HEENT normocephalic, head/scalp atraumatic and moist oral mucous membranes Eyes PERRL, EOMs intact bilaterally and conjunctivae normal Neck supple, no JVD, thyroid normal and no carotid bruits General: trachea midline Resp normal respiratory effort, no retractions, no use of accessory muscles and clear to auscultation bilaterally Auscultation: Negative for rales, rhonchi or wheezes Cardio regular rate, regular rhythm, S1 normal heart sound, S2 normal heart sound, no murmurs, no rub and no gallops GI normal to inspection, nondistended, normoactive bowel sounds, soft to palpation, non-tender and non-distended Extremity no clubbing, cyanosis or edema Skin no rashes or lesions noted General Skin Exam: no breakdown Neuro oriented x3, CN's II-XII intact bilaterally, no focal motor deficits and no sensory deficits noted Sensorium / Orientation: awake and alert Speech: speech normal Psych affect normal Assessment & Plan Assessment/Plan (1) Pre-eclampsia superimposed on chronic hypertension: PLAN: Plan 1. Preeclampsia superimposed on essential hypertension-I asked nursing to let me know how her blood pressure is trending after her magnesium is finished, I will check on the patient tomorrow, it may be necessary to go back up with the Trandate or add hydrochlorothiazide to her medications. Patient has no edema today, this could be a problem however with Procardia administration. Patient's renal functions are normal. #2 type 2 diabetes-I have elected to keep the patient on her current basal insulin dosage, I decreased her prandial dosage of lispro, blood sugars will be monitored. I entered an adult insulin order set him for the patient using the medium high dosage. Total clinical time spent by myself addressing the patient's medical problems, reviewing all the data, and collaborating with patient's care team: 35 minutes Charges/Coding Visit Charges Inpatient E&M: 58768 Subs Hosp L2
[2022-06-19] MEDS: 0.9% Saline Lock 10 ML Syringe IV (14:36)
[2022-06-19] MEDS: Insulin Lispro 100 UNIT/ML INSULN.PEN 7 UNIT SC (18:21)
[2022-06-19 18:45] LABS: Bedside Glucose 98 mg/dL (74-106)
[2022-06-19] MEDS: Mupirocin Ointment 22gm Tube 1 APPLIC TOPICAL (20:36)
[2022-06-19] MEDS: Insulin Glargine-YFGN 100 UNIT/ML Pen 30 UNIT SC (21:30)
[2022-06-19] MEDS: Labetalol 200 MG Tablet PO (21:31)
[2022-06-20 00:41] VITALS: BP 114/75; PULSE 85; RESP 16; TEMP 36.2
[2022-06-20 00:46] LABS: Bedside Glucose 121 mg/dL (74-106)
[2022-06-20 03:55] VITALS: BP 109/60; PULSE 82; RESP 18; TEMP 36.6
[2022-06-20] MEDS: Mupirocin Ointment 22gm Tube 1 APPLIC TOPICAL (05:50)
[2022-06-20] MEDS: Acetaminophen 500 MG Tablet 1000 MG PO (05:51)
[2022-06-20 06:10] LABS: Absolute Lymphocyte Count 1.76 X10^3/uL (0.83-4.51); Basophil# 0.03 X10^3/uL; Basophil% 0.4 % (0-1); Eosinophil# 0.44 X10^3/uL; Eosinophils% 5.7 % (0-5); Hematocrit 35.2 % (37-47); Hemoglobin 11.6 g/dL (12.0-15.0); Lymphocyte # 1.76 X10^3/ul (0.83-4.51); Lymphocyte % 22.7 % (19-41); Mean Platelet Vol. 9.1 fl (6.2-12.0); Monocyte# 0.52 X10^3/uL; Monocyte% 6.7 % (0-10); NRBC Flagged by Analyzer 0 % (0-5); Neutrophil # 4.97 X10^3/uL (2.7-7.7); Neutrophil % 63.9 % (47-70); Platelet Count 348 K/mm3 (150-450); RBC Distribution Width CV 12.8 % (11.6-14.6); RBC Distribution Width SD 42.1 fl (35.1-43.9); Red Blood Count 3.87 M/mm3 (4.2-5.4); White Blood Count 7.8 K/mm3 (4.4-11.0)
[2022-06-20 06:35] LABS: ALB/GLOB Ratio 0.7 RATIO (0.9-2.4); AST(SGOT) 20 U/L (15-37); Alanine Aminotransfer ALT/SGPT 32 U/L (13-56); Albumin, Serum 2.8 g/dL (3.2-5.0); Alkaline Phosphatase 101 U/L (45-117); Anion Gap 5 (5-15); BUN 17 mg/dL (7-18); BUN/Creat Ratio 22.8 RATIO (10-20); Calcium,Total 8.7 mg/dL (8.5-10.1); Chloride 108 mmol/L (98-107); Creatinine, Serum 0.74 mg/dL (0.55-1.02); EST Glomerular Filtration Rate 92 mL/min (>60); Est Glom Filt Rate - Afr Amer 111 mL/min (>60); Estimated Creatinine Clearance 90.93 ml/min; Globulin 4.1 g/dL (2.2-4.2); Glucose 115 mg/dL (74-106); LDH 273 U/L (84-246); Potassium 4.3 mmol/L (3.5-5.1); Protein, Total 6.9 g/dL (6.4-8.2); Sodium Level 137 mmol/L (136-145)
[2022-06-20 07:53] VITALS: BP 138/92; PULSE 82
[2022-06-20 08:00] VITALS: BP 138/92; PULSE 82; RESP 16; TEMP 36.9
[2022-06-20] MEDS: Insulin Glargine-YFGN 100 UNIT/ML Pen 12 UNIT SC (08:00)
[2022-06-20 08:26] LABS: Bedside Glucose 108 mg/dL (74-106)
[2022-06-20] MEDS: Insulin Lispro 100 UNIT/ML INSULN.PEN 7 UNIT SC ×2 (08:54→12:33)
--- NOTE | 2022-06-20 09:19 | DS.PCM_ITS ---
Discharge Summary Date of Admission: 06/14/22 Date of Discharge: 06/20/22 Summary: Patient arrived on 06/14/2022 for induction of labor with preeclampsia with severe features based on severe range blood pressures. Magnesium started, blood pressures controlled using antihypertensive medications. Subsequently delivered vaginally on 06/15/2022. Continue magnesium for 24 hours. Oral antihypertensives continued during . Subsequently on day 3 had severe range blood pressures requiring magnesium and antihypertensive medications. Continue magnesium for 24 hours. Hospitalist consulted. Hospitalist adjusted both blood pressure medications and insulin regiment. Kamini ient discharged home on 06/20/2022 on labetalol 200 mg twice daily Procardia 30 mg XL daily along with Humalog 7 units 3 times daily with meals and Levemir 12 units in the morning and 30 units in the evening. Meaningful Use Info Meaningful Use Diagnoses (Choose all that apply): None applicable Discharge Plan Admission Admit Date/Time: 06/14/22 16:00 Primary Reason for Your Visit: Preeclampsia with severe features Attending Provider: Sudarshan Gonzalez Primary Care Provider: Deandre Ramirez Consulting Providers: Mumtaz Eaton Instructions Additional Instructions / Restrictions: Regular diet. Okay to shower. Weightbearing as tolerated. No intercourse for 4 to 6 weeks. Call if fevers, chills, chest pain, shortness of breath, headache, visual changes, right upper quadrant pain. Follow-up tomorrow for blood pressure check Discharge Orders/Prescriptions Prescriptions: New nifedipine 60 mg Tablet Extended Release 24hr 30 mg PO BID 30 Days Qty: 30 2RF labetalol 200 mg Tablet 200 mg PO BID 30 Days Qty: 60 2RF enoxaparin 40 mg/0.4 mL Syringe 40 mg subcut DAILY 30 Days Qty: 12 1RF Rx Instructions: Include supplies Continued Prenatabs FA 1 TABLET tablet 1 tab PO DAILY Discontinued insulin lispro [Humalog Pen] 100 unit/mL Insulin Pen 20 unit SUBCUT Rx Instructions: 20 units at mealtime. aspirin 81 mg Tablet 81 mg PO DAILY Levemir FlexPen 100 unit/mL (3 mL) Insulin Pen 100 unit SUBCUT DAILY Rx Instructions: 25 units in AM 65 at HS Vitamin B-6 labetalol 300 mg Tablet 300 mg PO BID Referrals / Follow Up: Deandre Ramirez MD [Primary Care Provider] - Disposition Disposition (needs filled in before D/C Order can be placed): Home, Self Care
--- NOTE | 2022-06-20 09:29 | PN.OBGYN_ITS ---
Subjective Subjective No overnight complaints. Denies headache, vision change, chest pain, shortness of breath, nausea vomit, right upper quadrant pain Objective Data Objective Data Vital Signs: Vital Signs Temp Pulse Resp BP Pulse Ox O2 Del Method 98.5 F 82 16 138/92 H 98 Room Air 06/20/22 08:00 06/20/22 08:00 06/20/22 08:00 06/20/22 08:00 06/19/22 14:26 06/20/22 03:55 Oxygen Delivery Method Room Air Weight: 201 lb Body Mass Index (BMI) 33.4 Intake & Output: Intake and Output for Last 24 Hours 06/18/22 06/19/22 06/20/22 23:59 23:59 23:59 Intake Total 690.83 / 690.83 2131.65 / 2131.65 Output Total 1000 / 1000 2300 / 2300 Balance -309.17 / -309.17 -168.35 / -168.35 Lab / Micro Data Result Diagrams: 06/20/22 05:50 06/20/22 05:50 Labs: Laboratory Results - last 24 hr 06/19/22 09:02: POC Glucose 85 06/19/22 10:10: Magnesium 6.2 H* 06/19/22 13:23: POC Glucose 96 06/19/22 18:19: POC Glucose 98 06/19/22 21:19: POC Glucose 121 H 06/20/22 05:50: WBC 7.8, RBC 3.87 L, Hgb 11.6 L, Hct 35.2 L, MCV 91.0, MCH 30.0, MCHC 33.0, RDW Std Deviation 42.1, RDW Coeff of Soraya 12.8, Plt Count 348, MPV 9.1, Immature Gran % (Auto) 0.600, Neut % (Auto) 63.9, Lymph % (Auto) 22.7, [place] % (Auto) 6.7, Eos % (Auto) 5.7 H, Baso % (Auto) 0.4, Absolute Neuts (auto) 5.0, Absolute Lymphs (auto) 1.76, Nucleated RBC % 0 06/20/22 05:50: Sodium 137, Potassium 4.3, Chloride 108 H, Carbon Dioxide 24.0, Anion Gap 5, BUN 17, Creatinine 0.74, Estim Creat Clear Calc 90.93, Est GFR (MDRD) Af Amer 111, Est GFR (MDRD) Non-Af 92, BUN/Creatinine Ratio 22.8 H, Glucose 115 H, Calcium 8.7, Total Bilirubin 0.30, AST 20, ALT 32, Alkaline Phosphatase 101, Lactate Dehydrogenase 273 H, Total Protein 6.9, Albumin 2.8 L, Globulin 4.1, Albumin/Globulin Ratio 0.7 L 06/20/22 07:51: POC Glucose 108 H Physical Exam Const alert, oriented x3, no apparent distress, average body habitus, healthy appearing and well nourished HEENT normocephalic and moist oral mucous membranes Eyes PERRL Neck full ROM Resp normal respiratory effort, no retractions and no use of accessory muscles Neuro moves all extremities and no focal motor deficits Psych mental status grossly normal, affect normal, speech normal and activity/motor behavior normal Assessment & Plan (1) Vaginal delivery: PLAN: day 5. Breast-feeding. Pain well controlled. Kyung with se felix features based on severe range blood pressures status post magnesium x2. Hospitalist consulted yesterday after discussion this morning [id number] with hospitalist feel comfortable discharging home. Hospitalist adjusted labetalol to 200 mg twice daily and Procardia 30 mg XL twice daily. Hospitalist also adjusted insulin regimen. Patient has blood pressure cuff at home and will follow-up with law office assistant nurse regularly for blood pressure checks with parameters. To follow-up tomorrow for blood pressure check. Educated patient on signs and symptoms of preeclampsia. Patient state understanding all questions answered
[2022-06-20] MEDS: NIFEdipine 60 MG Tablet PO (09:58)
[2022-06-20] MEDS: Labetalol 200 MG Tablet PO (09:58)
[2022-06-20] MEDS: Enoxaparin 40 MG/0.4 ML Syringe SC (09:58)
--- NOTE | 2022-06-20 10:16 | PN.HOSP_ITS ---
Reason for Visit Reason for Visit: Diagnoses Type 2 diabetes mellitus without complications (06/14/22) Pre-existing hypertension with pre-eclampsia, unspecified trimester (06/14/22) Encounter for full-term uncomplicated delivery (06/14/22) Subjective Subjective Patient was seen and examined today, her blood sugars and blood pressure appear to be stable at this time, I talked with her BILINGUAL CUSTOMER SERVICE SPECIALIST physician who was in the room at the time of my examination. I feel at this time she is stable for discharge home, I decreased her Trandate to 200 mg twice a day, this may have to be bumped back up as an outpatient-she will be seeing her BILINGUAL CUSTOMER SERVICE SPECIALIST doctor for adjustment of her blood pressure medications. Objective Data Objective Data Vital Signs: Vital Signs Temp Pulse Resp BP Pulse Ox O2 Del Method 98.5 F 82 16 138/92 H 98 Room Air 06/20/22 08:00 06/20/22 08:00 06/20/22 08:00 06/20/22 08:00 06/19/22 14:26 06/20/22 03:55 Oxygen Delivery Method Room Air Weight: 91.172 kg Body Mass Index (BMI) 33.4 Intake & Output: Intake and Output for Last 24 Hours 06/18/22 06/19/22 06/20/22 23:59 23:59 23:59 Intake Total 690.83 / 690.83 2131.65 / 2131.65 Output Total 1000 / 1000 2300 / 2300 Balance -309.17 / -309.17 -168.35 / -168.35 Lab / Micro Data Result Diagrams: 06/20/22 05:50 06/20/22 05:50 Labs: Laboratory Results - last 24 hr 06/19/22 10:10: Magnesium 6.2 H* 06/19/22 13:23: POC Glucose 96 06/19/22 18:19: POC Glucose 98 06/19/22 21:19: POC Glucose 121 H 06/20/22 05:50: WBC 7.8, RBC 3.87 L, Hgb 11.6 L, Hct 35.2 L, MCV 91.0, MCH 30.0, MCHC 33.0, RDW Std Deviation 42.1, RDW Coeff of Soraya 12.8, Plt Count 348, MPV 9.1, Immature Gran % (Auto) 0.600, Neut % (Auto) 63.9, Lymph % (Auto) 22.7, [place] % (Auto) 6.7, Eos % (Auto) 5.7 H, Baso % (Auto) 0.4, Absolute Neuts (auto) 5.0, Absolute Lymphs (auto) 1.76, Nucleated RBC % 0 06/20/22 05:50: Sodium 137, Potassium 4.3, Chloride 108 H, Carbon Dioxide 24.0, Anion Gap 5, BUN 17, Creatinine 0.74, Estim Creat Clear Calc 90.93, Est GFR (MDRD) Af Amer 111, Est GFR (MDRD) Non-Af 92, BUN/Creatinine Ratio 22.8 H, Glucose 115 H, Calcium 8.7, Total Bilirubin 0.30, AST 20, ALT 32, Alkaline Phosphatase 101, Lactate Dehydrogenase 273 H, Total Protein 6.9, Albumin 2.8 L, Globulin 4.1, Albumin/Globulin Ratio 0.7 L 06/20/22 07:51: POC Glucose 108 H Physical Exam Const alert, oriented x3, no apparent distress and healthy appearing General Appearance: cooperative, well kempt and well developed Orientation / Consciousness: awake, oriented to person, oriented to place and oriented to time HEENT normocephalic and moist oral mucous membranes Eyes PERRL, EOMs intact bilaterally and conjunctivae normal Neck supple, no JVD and thyroid normal General: trachea midline Resp normal respiratory effort, no retractions, no use of accessory muscles and clear to auscultation bilaterally Auscultation: Negative for rales, rhonchi or wheezes Cardio regular rate, regular rhythm, S1 normal heart sound, S2 normal heart sound, no murmurs, no rub and no gallops GI normal to inspection, nondistended, normoactive bowel sounds, soft to palpation, non-tender and non-distended Extremity no clubbing, cyanosis or edema Skin no rashes or lesions noted General Skin Exam: no breakdown Neuro oriented x3, CN's II-XII intact bilaterally, moves all extremities, no focal motor deficits and no sensory deficits noted Sensorium / Orientation: awake and alert Speech: speech normal Psych affect normal Assessment & Plan Assessment/Plan (1) Diabetes mellitus: (2) Pre-eclampsia superimposed on chronic hypertension: PLAN: Plan 1. Preeclampsia superimposed on essential hypertension-patient's blood pressure appears to be actively controlled on her present regimen of Procardia and Trandate, patient will be following up with her OB GEN physician regarding any blood pressure medicine adjustments in the near future. #2 type 2 diabetes-patient appears to be controlled on her present insulin regimen, I recommend it be continued as an outpatient Patient appears medically stable for discharge from medicine standpoint at this time Total clinical time spent by myself addressing the patient's medical problems, reviewing all the data, and collaborating with patient's care team: 25 minutes Charges/Coding Visit Charges Inpatient E&M: 10235 Subs Hosp L1
[2022-06-20 13:00] LABS: Bedside Glucose 96 mg/dL (74-106)
== END 2022-06-20 13:00 | disposition home or self-care (01) | DRG 807 ==
LOC: WPOUT 16:04 → WP 16:06
PROVIDERS: Nurse Practitioner Women's Health; Student in an Organized Health Care Education/Training Program; Admitting Provider Obstetrics & Gynecology; PCP Family Medicine; Visit Provider Obstetrics & Gynecology
DX: O11.4 Pre-existing hypertension with pre-eclampsia, complicating childbirth (principal); Z37.0 Single live birth; O24.12 Pre-existing type 2 diabetes mellitus, in childbirth; Z79.4 Long term (current) use of insulin; Z3A.36 36 weeks gestation of pregnancy; O70.1 Second degree perineal laceration during delivery; O62.3 Precipitate labor; O10.02 Pre-existing essential hypertension complicating childbirth
CPT/HCPCS: 59025; 59050; 80053; 81001; 82565; 82570; 82962; 83615; 83735; 84156; 84450; 84460; 84550; 85025; 85027; 86780; 86850; 86900; 86901; 99221; J7120; A4216; G0378

== ENCOUNTER → 2022-11-29 | Outpatient (CLI) | payer OTHER, SELFPAY ==
[2022-12-08 12:09] LABS: HPV APTIMA, High Risk Negative (Negative)
== END | disposition home or self-care (01) ==
LOC: LAB 17:01
PROVIDERS: PCP Family Medicine; Referring Provider Obstetrics & Gynecology; Visit Provider Obstetrics & Gynecology
DX: Z12.4 Encounter for screening for malignant neoplasm of cervix (principal)
CPT/HCPCS: 87624; 88175; G0145